=== PATIENT | female | born 1980 | race African-American/Black ===

== ENCOUNTER 2021-10-02 13:53 | Emergency (ER) | payer MEDICAID, OTHER ==
[~2021-10-02] VITALS: Ht 157.5 cm; Wt 68.0 kg
[2021-10-02 15:07] VITALS: BP 148/96
[2021-10-02] MEDS ORDERED: KETOROLAC TROMETH 60MG/2ML VIAL IM ONE (15:15)
[2021-10-02] MEDS ORDERED: ONDANSETRON ODT 4 MG TAB PO ONE (15:15)
== END 2021-10-02 15:52 | disposition home or self-care (01) ==
LOC: ER 13:53
DX: G43.909 Migraine, unspecified, not intractable, without status migrainosus (principal); F41.9 Anxiety disorder, unspecified
CPT/HCPCS: 70450; 96372; 99284; J1885; Q0162